=== PATIENT | female | born 1970 | race Asian ===

== ENCOUNTER 2017-02-20 19:14 | Inpatient (IN) | payer BC, OTHER ==
[~2017-02-20] VITALS: Ht 167.6 cm; Wt 84.9 kg
[2017-02-20] MEDS ORDERED: SODIUM CHLORIDE 0.9% 1000ML 500 ML IV STA (19:56)
[2017-02-20] MEDS ORDERED: SODIUM CHLORIDE 0.9% 1000ML 1,000 ML IV STA (19:56)
--- NOTE | 2017-02-20 20:11 | EMERGENCY ROOM VISIT NOTE ---
History Report prepared by Baljeet: Janak Washington Under the Supervision of: Dr. Richar Romero M.D. First contact with patient: 19:45 Chief Complaint: ED VAG BLEEDING Stated Complaint: DIZZINESS,LOW HGB History of Present Illness The patient is a 46 year old female who presents to the Emergency Room with complaints of intermittent vaginal bleeding beginning a month ago. The patient states that her bleeding changes in frequency, and she has to change her pad every three hours. She reports that she went to [facility] February 06 and was given hormone pills to help with the bleeding. The patient notes that she stopped bleeding for two days, and then it started again on the . She states that when she lies down to sleep, she experiences palpitations, so she sits up. The patient reports that when she sits up, she is weak, dizzy, and experiences eye discomfort. She notes that she has experienced tingling in her hands and edema to her legs. The patient denies chest pain, fevers, and vomiting. She states that she saw CHOCOLATE COATER this morning, and she was sent to the ED because her Hemoglobin was 5.9. Source of History: patient Onset: month ago Position: other (vagina) Quality: other (bleeding) Timing: intermittent Associated Symptoms: No fevers, No chest pain, No vomiting Note: Associated symptoms: dizziness, eye discomfort, tingling in her hands, and edema to her legs. Review of Systems See HPI for pertinent positives & negatives. A total of 10 systems reviewed and were otherwise negative. Past Medical & Surgical Medical Problems: (1) Menometrorrhagia (2) No Known Active Medical Problems Family History Patient reports no known family medical history. Social History Smoking Status: Never Smoker Marital Status: Housing Status: lives with family Current/Historical Medications Scheduled Bee Pollen (Bee Pollen), 1 TAB PO DAILY Ibuprofen (Ibuprofen), 1 CAP PO PRN Allergies Coded Allergies: No Known Allergies (Unverified , 02/20/17) Physical Exam Vital Signs Date Time Temp Pulse Resp B/P (MAP) Pulse Ox O2 Delivery O2 Flow Rate FiO2 02/20/17 19:27 36.9 107 18 118/70 99 Room Air Physical Exam GENERAL: Patient is in no acute distress. HEENT: No acute trauma, normocephalic atraumatic, mucous membranes moist, no nasal congestion, no scleral icterus. NECK: No stridor, no adenopathy, no meningismus, trachea is midline. LUNGS: Clear to auscultation bilaterally, no wheeze, no rhonchi, breath sounds equal. HEART: 2/6 systolic murmur with regular rate and rhythm. ABDOMEN: Soft, nontender, bowel sounds positive, no hernias, no peritonitis. EXTREMITIES: No cyanosis, mild bilateral pedal edema, full range of motion of all the joints without pain or difficulty, no signs for acute trauma. NEUROLOGIC: Oriented x 3, no acute motor or sensory deficits, no focal weakness. SKIN: No rash, no jaundice, no diaphoresis. Pale. Medical Decision & Procedures Laboratory Results 02/20/17 20:19 Red Blood Count 2.07, Mean Corpuscular Volume 82.1, Mean Corpuscular Hemoglobin 27.1, Mean Corpuscular Hemoglobin Concent 32.9, Mean Platelet Volume 9.7, Neutrophils (%) (Auto) 53.7, Lymphocytes (%) (Auto) 38.0, Monocytes (%) (Auto) 6.5, Eosinophils (%) (Auto) 1.4, Basophils (%) (Auto) 0.2, Neutrophils # (Auto) 2.71, Lymphocytes # (Auto) 1.92, Monocytes # (Auto) 0.33, Eosinophils # (Auto) 0.07, Basophils # (Auto) 0.01 02/20/17 20:19 Test 02/20/17 20:19 White Blood Count 5.05 K/uL (4.8-10.8) Red Blood Count 2.07 M/uL (4.2-5.4) Hemoglobin 5.6 g/dL (12.0-16.0) Hematocrit 17.0 % (37-47) Mean Corpuscular Volume 82.1 fL (80-100) Mean Corpuscular Hemoglobin 27.1 pg (25-34) Mean Corpuscular Hemoglobin Concent 32.9 g/dl (32-36) Platelet Count 205 K/uL (130-400) Mean Platelet Volume 9.7 fL (7.4-10.4) Neutrophils (%) (Auto) 53.7 % Lymphocytes (%) (Auto) 38.0 % Monocytes (%) (Auto) 6.5 % Eosinophils (%) (Auto) 1.4 % Basophils (%) (Auto) 0.2 % Neutrophils # (Auto) 2.71 K/uL (1.4-6.5) Lymphocytes # (Auto) 1.92 K/uL (1.2-3.4) Monocytes # (Auto) 0.33 K/uL (0.11-0.59) Eosinophils # (Auto) 0.07 K/uL (0-0.5) Basophils # (Auto) 0.01 K/uL (0-0.2) RDW Standard Deviation 39.8 fL (36.4-46.3) RDW Coefficient of Variation 13.0 % (11.5-14.5) Immature Granulocyte % (Auto) 0.2 % Immature Granulocyte # (Auto) 0.01 K/uL (0.00-0.02) Red Blood Cell Morphology Unremarkable Prothrombin Time 10.0 SECONDS (9.0-12.0) Prothromb Time International Ratio 0.9 (0.9-1.1) Activated Partial Thromboplast Time 21.0 SECONDS (21.0-31.0) Partial Thromboplastin Ratio 0.8 Anion Gap 5.0 mmol/L (3-11) Est Creatinine Clear Calc Drug Dose 87.7 ml/min Estimated GFR () 92.6 Estimated GFR (Non- 79.9 BUN/Creatinine Ratio 9.5 (10-20) Calcium Level 7.6 mg/dl (8.5-10.1) Total Bilirubin 0.3 mg/dl (0.2-1) Aspartate Amino Transf (AST/SGOT) 19 U/L (15-37) Alanine Aminotransferase (ALT/SGPT) 30 U/L (12-78) Alkaline Phosphatase 49 U/L (45-117) Total Protein 5.8 gm/dl (6.4-8.2) Albumin 2.9 gm/dl (3.4-5.0) Globulin 2.9 gm/dl (2.5-4.0) Albumin/Globulin Ratio 1.0 (0.9-2) Human Chorionic Gonadotropin, Qual NEG (NEG) Laboratory results reviewed by me. Medications Administered Medications (Trade) Dose Ordered Sig/Christiano Route Start Time Stop Time Status Last Admin Dose Admin Sodium Chloride 500 ml @ 999 mls/hr Q31M STAT IV 02/20/17 19:56 02/20/17 20:26 DC 02/20/17 19:56 999 MLS/HR Sodium Chloride 1,000 ml @ 125 mls/hr Q8H STAT IV 02/20/17 19:56 02/21/17 03:55 02/20/17 19:56 125 MLS/HR ED Course 1946: The patient was evaluated in room B05. A complete history and physical exam was performed. I discussed the risks and benefits of a blood transfusion. The patient consented to the blood transfusion. 1955: Ordered Sodium Chloride 1000 ml @ 125 mls/hr IV, Sodium Chloride 500 ml @ 999 mls/hr IV 2000: I discussed the patient's case with Rick Tinsley [employer]OCOLATE [employer]ATER. He suggested I consult with Medicine about further treatment. 2018: I discussed the patient's case with Rick Olivares. The patient will be evaluated for further treatment. Medical Decision The patient is a 46 year old female who presents to the ED with complaints of vaginal bleeding. Differential diagnoses considered include anemia, electrolyte imbalance, dehydration, coagulopathy, low platelet count, fibroid. There is no leukocytosis. The patient is quite anemic though with a hemoglobin just over 5. No significant electrolyte abnormality, kidney failure or hepatitis. There is no coagulopathy. testing is negative. The patient received IV saline, she was ordered for blood for transfusion, the blood is not yet ready to be given. The patient requires a hospital stay, she is not safe for discharge given the low hemoglobin value. I discussed the case with the on-call OB doctor as well as the on-call hospitalist. Case management has been involved. The patient is aware of all her findings. Consults Time Called: 1952 Consulting Physician: Rick Tinsley [employer] Returned Call: 2000 I discussed the patient's case with Rick Tinsley [employer]. He suggested I consult with Medicine about further treatment. Additional Consults: Time Called: 2001 Consulted Physician: Rick Oliv[facility] Returned Call: 2017 Additional Comments: I discussed the patient's case with Rick Olivares. The patient will be evaluated for further treatment. Impression Primary Impression: Anemia Additional Impressions: Weakness Vaginal bleeding Scribe Attestation The scribe's documentation has been prepared under my direction and personally reviewed by me in its entirety. I confirm that the note above accurately reflects all work, treatment, procedures, and medical decision making performed by me. Departure Information Dispostion Being Evaluated By Hospitalist Patient Instructions [facility] Problem Qualifiers
[2017-02-20] MEDS: SODIUM CHLORIDE 0.9% 1000ML 1,000 ML IV SCH (20:25)
[2017-02-20] MEDS ORDERED: IBUP1CAP9 PO (20:25)
[2017-02-20] MEDS ORDERED: BEE1CAP PO (20:25)
[2017-02-20] MEDS ORDERED: ONDANSETRON INJ 2 MG/ML 2 ML VIAL IV PRN (20:30)
[2017-02-20 20:41] LABS: INR 0.9 (0.9-1.1); PARTIAL THROMBOPLASTIN RATIO 0.8
[2017-02-20 20:47] LABS: MEAN CELL VOLUME 82.1 fL (80-100); MEAN CORPUSCULAR HEMOGLOBIN 27.1 pg (25-34); MEAN CORPUSCULAR HGB CONC 32.9 g/dl (32-36); MEAN PLATELET VOLUME 9.7 fL (7.4-10.4); PLATELET COUNT 205 K/uL (130-400); RED BLOOD COUNT 2.07 M/uL (4.2-5.4); WHITE BLOOD COUNT 5.05 K/uL (4.8-10.8)
[2017-02-20 20:54] LABS: BUN/CREATININE RATIO 9.5 (10-20); CALCIUM 7.6 mg/dl (8.5-10.1); CREATININE 0.86 mg/dl (0.60-1.20); POTASSIUM 3.5 mmol/L (3.5-5.1)
[2017-02-20 20:56] LABS: BASO % 0.2 %; BASO ABS # 0.01 K/uL (0-0.2); COMPLETE YES; EOS % 1.4 %; IG% 0.2 %; LYMPH ABS # 1.92 K/uL (1.2-3.4); MONO % 6.5 %; NEUT % 53.7 %
[2017-02-20 20:58] LABS: PREG INTERNAL NEGATIVE QC NEG CLEAR BACKGROUND; PREG INTERNAL POSITIVE QC POS CONTROL LINE
--- NOTE | 2017-02-20 21:01 | History and Physical ---
History & Physical Date & Time of Service: Feb 20, 2017 at 20:50 Chief Complaint: Dizziness,Low Hgb Primary Care Physician: Jessie Howard M.D. History of Present Illness Source: patient, family, clinic records This is a 46 year old female with recent history of excessive vaginal bleeding; followed by OB-training professional as an outpatient for this; recently had endometrial biopsy. Found to have Hgb of ~5 as outpatient and was told to come to the ER for further evaluation. She states she has excessive bleeding almost daily with blood clots. She has now developed weakness, dizziness and palpitations. Upon presentation, was given IVFs, and two units of PRBCs were ordered. She is resting comfortably, but still c/o weakness and dizziness. Denies nausea/ vomiting, denies fevers. No urinary symptoms, denies diarrhea. Family History Patient reports no known family medical history. Social History Smoking Status: Never Smoker Marital Status: Multi-Drug Resistant Organisms History of MDRO: No Allergies Coded Allergies: No Known Allergies (Unverified , 02/20/17) Home Medications Scheduled Bee Pollen (Bee Pollen), 1 TAB PO DAILY Ibuprofen (Ibuprofen), 1 CAP PO PRN Review of Systems Constitutional: + chills, + weakness, + fatigue, No fever Respiratory: No cough, No sputum, No wheezing, No shortness of breath, No dyspnea on exertion, No dyspnea at rest, No hemoptysis Cardiovascular: + palpitations, No chest pain, No edema Abdomen: No pain, No nausea, No vomiting, No diarrhea Musculoskeletal: No joint pain, No muscle pain Genitourinary - Female: No dysuria, No urinary frequency, No urinary urgency, No urinary incontinence, No urinary retention, No hematuria Neurologic: + weakness, No numbness/tingling Psychiatric: No depression symptoms Endocrine: + fatigue, No excessive thirst, No excessive urination Hematologic / Lymphatic: + abnormal bleeding/bruising Integumentary: No rash Allergic / Immunologic: No environmental allergies, No seasonal allergies Physical Exam Vital Signs Date Time Temp Pulse Resp B/P (MAP) Pulse Ox O2 Delivery O2 Flow Rate FiO2 02/20/17 20:46 100 Room Air 02/20/17 20:46 78 18 115/70 100 Room Air 02/20/17 20:41 75 02/20/17 19:27 36.9 107 18 118/70 99 Room Air General Appearance: no apparent distress, + pertinent finding (Weakness) Head: normocephalic, atraumatic Eyes: normal inspection ENT: hearing grossly normal Respiratory/Chest: chest non-tender, lungs clear, normal breath sounds, no respiratory distress, no accessory muscle use Cardiovascular: regular rate, rhythm, no edema, no murmur, normal peripheral pulses Abdomen/GI: normal bowel sounds, non tender, soft Extremities/Musculoskelatal: normal inspection, no calf tenderness, normal capillary refill, no pedal edema, normal range of motion 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, no motor/sensory deficits, alert, normal mood/affect, oriented x 3 Skin: + pertinent finding (+pale) Lymphatic: no adenopathy Diagnostics Laboratory Results Results Past 24 Hours Test 02/20/17 20:19 Range/Units White Blood Count 5.05 4.8-10.8 K/uL Red Blood Count 2.07 4.2-5.4 M/uL Hemoglobin 5.6 12.0-16.0 g/dL Hematocrit 17.0 37-47 % Mean Corpuscular Volume 82.1 80-100 fL Mean Corpuscular Hemoglobin 27.1 25-34 pg Mean Corpuscular Hemoglobin Concent 32.9 32-36 g/dl Platelet Count 205 130-400 K/uL Mean Platelet Volume 9.7 7.4-10.4 fL RDW Standard Deviation 39.8 36.4-46.3 fL RDW Coefficient of Variation 13.0 11.5-14.5 % Prothrombin Time 10.0 9.0-12.0 SECONDS Prothromb Time International Ratio 0.9 0.9-1.1 Activated Partial Thromboplast Time 21.0 21.0-31.0 SECONDS Partial Thromboplastin Ratio 0.8 Impression Assessment and Plan This is a 46 year old female with recent history of excessive vaginal bleeding presents with symptomatic blood loss anemia Symptomatic, Acute Blood Loss Anemia Menometrorrhagia patient with excessive vaginal bleeding; menometrorrhagia recently had endometrial biopsy performed was recently on hormone therapy in an attempt to help the bleeding, which failed outpatient labs showed Hgb of around 5 and was sent to the ER Hgb here is 5.6 type and crossed two units, to transfuse both units H/H q8 hours monitor in tele due to palpitations and symptomatic anemia NS @ 100mL/hr - diet ordered electronics test engineer consulted for further input FULL CODE VTE Prophylaxis VTE Risk Assessment Done? Y/N: Yes Risk Level: Low
[2017-02-20 21:24] VITALS: BP 144/72; PULSE 76; TEMP 36.5; O2SAT 100; Ht 167.6 cm; Wt 84.9 kg
[2017-02-20] MEDS ORDERED: ACETAMINOPHEN 500 MG TAB PO PRN (21:45)
[2017-02-20 22:06] VITALS: BP 111/69; PULSE 76; TEMP 36.8; O2SAT 99
[2017-02-20 22:13] LABS: HEMATOCRIT 18.9 % (37-47)
[2017-02-20 22:29] VITALS: BP 102/63; PULSE 84; TEMP 36.9; O2SAT 98
[2017-02-20 22:54] VITALS: BP 105/68; PULSE 88; TEMP 36.9; O2SAT 99
[2017-02-20 23:57] VITALS: BP 106/67; PULSE 83; TEMP 36.9; O2SAT 98
[2017-02-21] VITALS (12 sets, daily range): BP systolic 105–131; BP diastolic 67–78; PULSE 65–81; TEMP 36.7–37.1; O2SAT 97–98
[2017-02-21 05:55] LABS: HEMATOCRIT 23.7 % (37-47)
[2017-02-21 06:12] LABS: BUN/CREATININE RATIO 10.4 (10-20); CALCIUM 7.7 mg/dl (8.5-10.1); CREATININE 0.72 mg/dl (0.60-1.20); POTASSIUM 3.8 mmol/L (3.5-5.1)
--- NOTE | 2017-02-21 12:02 | Discharge Instructions ---
Discharge Instructions Date of Service Feb 21, 2017. Admission Reason for Admission: Menometrorrhagia Discharge Discharge Diagnosis / Problem: symptomatic anemia Discharge Goals Goal(s): Prevent Disease Progression Activity Recommendations Activity Limitations: per Instructions/Follow-up section . Instructions / Follow-Up Instructions / Follow-Up Please avoid Ibuprofen or other blood thinners like this (Aleve, Naproxen, Aspirin, etc) until after your follow-up with Dr. Howard. You have a follow-up appointment with Dr. Howard on 02/27 @ 12:45pm. Please bring all paperwork from this discharge with you to the appointment. It was a pleasure taking care of you! Call if you have any questions or problems. You can reach a [facility] hospitalist on duty at [facility] 24 hours a day by calling [phone]. Take care of yourself. Aisha Castellanos DO [facility] Diet Patient's current hospital diet: Regular Diet Discharge Diet Recommended Diet: Regular Diet Procedures Procedures Performed: 3 units of blood transfused Pending Studies Studies pending at discharge: no Medical Emergencies . Who to Call and When: Medical Emergencies: If at any time you feel your situation is an emergency, please call 911 immediately. . Non-Emergent Contact Non-Emergency issues call your: Primary Care Provider . . "Provider Documentation" section prepared by Aisha Castellanos. . VTE Core Measure Inpt VTE Proph given/why not?: Contraindicated
[2017-02-21] MEDS ORDERED: HYDR25CA PO (12:05)
[2017-02-21] MEDS ORDERED: TRMCR130WC TD (12:05)
[2017-02-21] MEDS: SODIUM CHLORIDE 0.9% 1000ML 1,000 ML IV SCH (12:28)
[2017-02-21 12:41] LABS: HEMATOCRIT 27.4 % (37-47)
--- NOTE | 2017-02-21 22:02 | Discharge Summary ---
Discharge Summary Date of Service Feb 21, 2017. Discharge Summary Admission Date: Feb 20, 2017 at 20:28 Discharge Date: Feb 21, 2017 Discharge Disposition: Home Principal Diagnosis: Symptomatic Anemia 2/2 DUB Procedures: s/p 3 Units pRBCs Vaccinations: None. Consultations: None. Pending Studies/Follow-Up: see instructions below. Medication Reconciliation Continued Medications: Bee Pollen (Bee Pollen) Unknown Strength Cap 1 TAB PO DAILY Hydroxyzine Pamoate (Vistaril) 25 Mg Cap 1-2 CAP PO Q6 PRN for itching, 1 Refill Triamcinolone Acet (Aristocort 0.1%) 90 Appln/30 Gm Cr 1 APPL TD UD Discontinued Medications: Ibuprofen (Ibuprofen) 200 Mg Cap 1 CAP PO PRN Admission Information HPI (per Admitting provider): This is a 46 year old female with recent history of excessive vaginal bleeding; followed by OB-lace roller operator as an outpatient for this; recently had endometrial biopsy. Found to have Hgb of ~5 as outpatient and was told to come to the ER for further evaluation. She states she has excessive bleeding almost daily with blood clots. She has now developed weakness, dizziness and palpitations. Upon presentation, was given IVFs, and two units of PRBCs were ordered. She is resting comfortably, but still c/o weakness and dizziness. Denies nausea/ vomiting, denies fevers. No urinary symptoms, denies diarrhea. Physical Exam (per Admitting): General Appearance: no apparent distress, + pertinent finding (Weakness) Head: normocephalic, atraumatic Eyes: normal inspection ENT: hearing grossly normal Respiratory/Chest: chest non-tender, lungs clear, normal breath sounds, no respiratory distress, no accessory muscle use Cardiovascular: regular rate, rhythm, no edema, no murmur, normal peripheral pulses Abdomen/GI: normal bowel sounds, non tender, soft Extremities/Musculoskelatal: normal inspection, no calf tenderness, normal capillary refill, no pedal edema, normal range of motion Neurologic/Psych: data analytics developer II-XII nml as tested, no motor/sensory deficits, alert , normal mood/affect, oriented x 3 Skin: + pertinent finding (+pale) Lymphatic: no adenopathy Hospital Course The patient is a 46 yo F with a recent h/o DUB who went on a progesterone trial recently with worsening of her vaginal bleeding. The bleeding stopped yesterday prior to arrival to the hospital and she was able to undergo her planned endometrial biopsy procedure. She was weak and dizzy with palpitations , however, so she was sent for bloodwork and found to have a Hb around 5. She was admitted and transfused 3 units of pRBCs overnight with resulting H/H post- transfusion of 9.3/27.4 and resolution of symptoms with no further vaginal bleeding reported. She was feeling well and was sent home in stable condition with close PCP follow-up. Total time spent on discharge = 60 minutes This includes examination of the patient, discharge planning, medication reconciliation, and communication with other providers. Discharge Instructions [facility] [address] [place] [address] Discharge Medical Patient Name: Evangelina Abbasi Unit Number: [id number] Date of : 1970 Patient Status: Discharged Inpatient Attending Doctor: Aisha Castellanos DO DI: Medical v4 Discharge Instructions Date of Service Feb 21, 2017. Admission Reason for Admission: Menometrorrhagia Discharge Discharge Diagnosis / Problem: symptomatic anemia Discharge Goals Goal(s): Prevent Disease Progression Activity Recommendations Activity Limitations: per Instructions/Follow-up section . Instructions / Follow-Up Instructions / Follow-Up Please avoid Ibuprofen or other blood thinners like this (Aleve, Naproxen, Aspirin, etc) until after your follow-up with Dr. Howard. You have a follow-up appointment with Dr. Howard on 02/27 @ 12:45pm. Please bring all paperwork from this discharge with you to the appointment. It was a pleasure taking care of you! Call if you have any questions or problems. You can reach a [facility] hospitalist on duty at [facility] 24 hours a day by calling [phone]. Take care of yourself. Aisha Castellanos DO [facility] Hospitalist Current Hospital Diet Patient's current hospital diet: Regular Diet Discharge Diet Recommended Diet: Regular Diet Procedures Procedures Performed: 3 units of blood transfused Pending Studies Studies pending at discharge: no Medical Emergencies . Who to Call and When: Medical Emergencies: If at any time you feel your situation is an emergency, please call 911 immediately. . Non-Emergent Contact Non-Emergency issues call your: Primary Care Provider . . "Provider Documentation" section prepared by Aisha Castellanos. . VTE Core Measure Inpt VTE Proph given/why not?: Contraindicated Additional Copies To Jessie Howard M.D.
== END 2017-02-21 14:58 | disposition home or self-care (01) | DRG 812 ==
LOC: C.EDB 19:15 → C.2T 20:28 → ENRESERV 20:37
PROVIDERS: ADMIT Family Medicine; ATTEND Hospitalist
DX: D62 Acute posthemorrhagic anemia (principal); N93.8 Other specified abnormal uterine and vaginal bleeding